=== PATIENT | male | born 1975 | race Caucasian/White ===

== ENCOUNTER 2017-11-01 21:30 | Emergency (ER) | payer MEDICAID ==
[~2017-11-01] VITALS: Ht 180.3 cm; Wt 120.2 kg
[~2017-11-01 21:30] MED LIST: CYCL10 PO; IBUP800 PO
[2017-11-01] MEDS ORDERED: ERYT1OIN LEFTEYE (23:39)
== END 2017-11-01 23:49 | disposition home or self-care (01) ==
LOC: ER 21:30
DX: H10.9 Unspecified conjunctivitis (principal)
CPT/HCPCS: 99282

== ENCOUNTER → 2019-10-27 | Outpatient (CLI) | payer OTHER ==
[~2019-10-27] MED LIST changes: +ERYT1OIN LEFTEYE
== END | disposition home or self-care (01) ==
LOC: LAB 08:04 → LAB SHORT 08:04
DX: R22.0 Localized swelling, mass and lump, head (principal)
CPT/HCPCS: 88305